=== PATIENT | female | born 1960 | race American Indian/Alaskan Native ===

== ENCOUNTER 2016-08-27 11:11 | Inpatient (IN) | payer MEDICAID, OTHER ==
--- NOTE | 2016-08-27 12:26 | C.PDOC ---
History Of Present Illness 56 y/o female is brought into the ED by son for evaluation. 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 He notes that she had been doing well but he is concerned that she may not be taking her medications because for the last day or two she has been withdrawn, no longer doing her daily activities. Son denies any known fevers or other complaints. Time Seen by Provider: 08/27/16 12:04 Chief Complaint (Nursing): Psychiatric Evaluation History Per: Family (son) History/Exam Limitations: other (pt has catatonic schizophrenia) Onset/Duration Of Symptoms: Days, Gradual, Persistent Current Symptoms Are (Timing): Still Present Suicide/Self Injury Attempted (Context): None Involuntary Hold By: None Recent travel outside of the [place]: No Past Medical History Reviewed: Historical Data, Nursing Documentation, Vital Signs Vital Signs: Last Vital Signs Temp 98.4 F 08/27/16 13:43 Pulse 90 08/27/16 13:43 Resp 20 08/27/16 13:43 BP 125/77 08/27/16 13:43 Pulse Ox 99 08/27/16 14:03 - Medical History PMH: Depression (Hx.), HTN, Schizophrenia (Hx.) Surgical History: No Surg Hx - [facility] Procedures GROUP PSYCHOTHERAPY (12/10/15) INDIVID PSYCHOTHERAP NEC (05/07/14) INDIVIDUAL PSYCHOTHERAPY, SUPPORTIVE (12/10/15) MEDICATION MANAGEMENT (12/10/15) OTHER GROUP THERAPY (05/07/14) PSYCHIAT DRUG THERAP NEC (05/07/14) Family History: States: Unknown Family Hx - Social History Hx Tobacco Use: No Hx Alcohol Use: No Hx Substance Use: No - Immunization History Hx Tetanus Toxoid Vaccination: No Hx Influenza Vaccination: No Hx Pneumococcal Vaccination: No Review Of Systems Except As Marked, All Systems Reviewed And Found Negative. Constitutional: Negative for: Fever Psych: Positive for: Other (pt seems withdrawn) Physical Exam - Physical Exam Appears: Non-toxic, No Acute Distress Skin: Normal Color, Warm, Dry Head: Atraumatic, Normacephalic Eye(s): bilateral: Normal Inspection, PERRL, EOMI Neck: Normal ROM, Supple Chest: Symmetrical Cardiovascular: Rhythm Regular Respiratory: Normal Breath Sounds, No Rales, No Rhonchi, No Wheezing Gastrointestinal/Abdominal: Normal Exam, Soft, No Tenderness Extremity: Normal ROM, No Pedal Edema Neurological/Psych: Oriented x3, Normal Speech, Normal Cognition ED Course And Treatment - Laboratory Results Result Diagrams: 08/27/16 12:46 08/27/16 12:46 ECG: Interpreted By Me ECG Rhythm: Sinus Rhythm ECG Interpretation: No Acute Changes Rate From EC (bpm) O2 Sat by Pulse Oximetry: 99 (ra) Pulse Ox Interpretation: Normal Progress Note: Pt medically stable for PES evaluation. However due to protocol : EKG, Blood Work, and Urinalysis were ordered and reviewed. Medical Decision Making Medical Decision Making: K noted low, review has shown pt need PO K in many of her prior admission, unclear if pt is on a diuretic for her HTN Recommend PO K, (20 bid) and repeat K in few days Disposition - Disposition Disposition: HOME/ ROUTINE Disposition Time: 14:33 Condition: FAIR - Clinical Impression Clinical Impression: Catatonia schizophrenia - Scribe Statement The provider has reviewed the documentation as recorded by the Scribe (Kassidy Smith) Provider Attestation: All medical record entries made by the Scribe were at my direction and personally dictated by me. I have reviewed the chart and agree that the record accurately reflects my personal performance of the history, physical exam, medical decision making, and the department course for this patient. I have also personally directed, reviewed, and agree with the discharge instructions and disposition. Decision To Admit - Pt Status Changed To: Hospital Disposition Of: Inpatient - Admit Certification Admit to Inpatient:: After my assessment, the patient will require hospitalization for at least two midnights. This is because of the severity of symptoms shown, intensity of services needed, and/or the medical risk in this patient being treated as an outpatient. - InPatient: Physician Admission Certification: I certify that this patient requires 2 or more midnights of care for the following reason:: Protocol - . Bed Request Type: Psychiatry Admitting Physician: Feliciano Barber Patient Diagnosis: Catatonia schizophrenia
[2016-08-27 12:54] LABS: BASO % 0.3 % (0.0-2.0); EOS % 0.4 % (0.0-4.0); HEMATOCRIT 43.3 % (34.0-47.0); LYMPH # 0.9 K/uL (1.0-4.3); MEAN CELL VOLUME 87.5 fL (81.0-99.0); MEAN CORPUSCULAR HEMOGLOBIN 29.4 pg (27.0-31.0); MEAN CORPUSCULAR HGB CONC 33.6 g/dL (33.0-37.0); MEAN PLATELET VOLUME 8.7 fL (7.2-11.7); MONO # 0.4 K/uL (0.0-0.8); MONO % 6.1 % (0.0-10.0); RED CELL DISTRIBUTION WIDTH 13.4 % (11.5-14.5); WHITE BLOOD COUNT 7.1 K/uL (4.8-10.8)
[2016-08-27 13:01] LABS: CHLORIDE 98 mmol/L (98-107)
[2016-08-27 13:02] LABS: POTASSIUM 3.1 mmol/L (3.6-5.2); SODIUM 144 mmol/L (132-148)
[2016-08-27 13:04] LABS: ALB/GLOB RATIO 1.1 (1.0-2.1); ALKALINE PHOSPHATASE 80 U/L (38-126); AST/SGOT 22 U/L (14-36); BILIRUBIN,TOTAL 0.6 mg/dL (0.2-1.3); BLOOD UREA NITROGEN 15 mg/dL (7-17); CARBON DIOXIDE 27 mmol/L (22-30); GFR AFRICAN-AMERICAN > 60; TOTAL PROTEIN 8.5 g/dL (6.3-8.3)
[2016-08-27 13:05] LABS: ALCOHOL SERUM < 10 mg/dl (0-10); ALT/SGPT 20 U/L (9-52); CALCIUM 9.2 mg/dl (8.6-10.4); GLUCOSE,RANDOM 115 mg/dL (65-105)
[2016-08-27 13:20] LABS: URINE BACTERIA OCC (<OCC); URINE BILIRUBIN NEGATIVE (NEGATIVE); URINE BLOOD NEGATIVE (NEGATIVE); URINE COLOR Amber (YELLOW); URINE GLUCOSE (UA) NORMAL (Normal); URINE KETONE 1+ mg/dL (NEGATIVE); URINE LEUKOCYTE ESTERASE TRACE Leu/uL (Negative); URINE PROTEIN 2+ mg/dL (NEGATIVE); URINE UROBILINOGEN NORMAL mg/dL (0.2-1.0)
[2016-08-27 13:30] LABS: RBC URINE 2 /hpf (0-3); WBC URINE 6 /hpf (0-5)
[2016-08-27] MEDS ORDERED: Potassium Chloride 20 mEq ER Tab PO STA (13:58)
[2016-08-27] MEDS ORDERED: Potassium Chloride 20 mEq ER Tab PO ONE (14:06)
[2016-08-27 14:54] VITALS: O2SAT 100
--- NOTE | 2016-08-28 13:19 | PCM.PSYCH ---
Initial Psychiatric Evaluation - Initial Psychiatric Evaluation Type of Admission: Voluntary Legal Status: Capacity Chief Complaint (in patient's own words): "I was depressed" History of Present Illness and Precipitating Events: The patient is seen, chart reviewed and case discussed. She is known to the commercial real estate underwriter from her 2016 admission. This is a 56-year-old -[place] female from [facility] from where she came about 10 or 12 years ago. 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 The patient was brought in by her family because she had stopped taking her medications a bit more than a month ago and started to become catatonic and depressed again. She just resumed her medications last week which are Lexapro and Risperdal and Ativan but was still very debilitated and catatonic. Patient denies any stressors currently in her life and claims that she thought she was well and this why she stopped the medications. Currently reports depressive symptoms and paranoia but denies homicidal or suicidal ideation. Denies AVH. Medical history: HTN Substance use history: Denies Family psych history: Denies Past psychiatric history Reports history of multiple inpatient psychiatric hospitalizations, last discharge last year from [facility] Current Medications: Active Medications Generic Name Dose Route Start Last Admin Trade Name Freq PRN Reason Stop Dose Admin Amlodipine Besylate 5 mg 08/28/16 10:00 08/28/16 10:07 Norvasc PO 5 mg DAILY ALISA Administration Escitalopram Oxalate 20 mg 08/28/16 10:00 08/28/16 10:07 Lexapro PO 20 mg DAILY ALISA Administration Famotidine 20 mg 08/27/16 18:00 08/28/16 10:07 Pepcid PO 20 mg BID ALISA Administration Hydroxyzine HCl 25 mg 08/27/16 17:43 Atarax PO Q4 PRN Anxiety Ibuprofen 600 mg 08/27/16 17:43 Motrin Tab PO Q6H PRN Pain, moderate (4-7) Lorazepam 1 mg 08/27/16 21:30 08/28/16 10:07 Ativan PO 1 mg TID ALISA Administration Risperidone 1 mg 08/27/16 22:00 Risperdal Tab PO HS ALISA Trazodone HCl 50 mg 08/27/16 22:00 Desyrel PO HS ALISA Past Psychiatric History - Past Psychiatric History Previous Treatment History: Inpatient Pertinent Medical Hx (Current Medical&Sleep Prob, Allergies): Allergies Allergy/AdvReac Type Severity Reaction Status Date / Time No Known Allergies Allergy Verified 12/09/15 18:59 risperiDONE [RisperDAL Tab] 1 mg PO HS #30 tab 12/15/15 traZODone [Desyrel] 50 mg PO HS PRN #30 tab 12/15/15 Escitalopram [Lexapro] 20 mg PO DAILY 08/27/16 Famotidine 20 mg PO BID 08/27/16 LORazepam [Ativan] 1 mg PO BID 08/27/16 Mv,Min #10/FA/D3/Alip Acid/Lut [Strovite One Caplet] 1 tab PO DAILY 08/27/16 Pravastatin Sodium [Pravachol] 20 mg PO DAILY 08/27/16 amLODIPine [Norvasc] 5 mg PO DAILY 08/27/16 Review of Systems - Neurological Neurological: UNREMARKABLE - Psychiatric Psychiatric: Abnormal Sleep Pattern, Anhedonia, Anxiety, Depression, Difficulty Concentrating, Paranoia. absent: Hallucinations, Homicidal Ideation, Suicidal Ideation Mental Status Examination - Personal Presentation Personal Presentation: Looks older than stated age - Affect Affect: Blunted - Motor Activity Motor Activity: Psychomotor Retardation - Reliability in Providing Information Reliability in Providing Information: Poor, due to alteration in thoughts - Speech Speech: Other (slowed) - Mood Mood: Depressed, Anxious - Formal Thought Process Formal Thought Process: Paranoia, Other (slow TP) - Obsessions/Compulsions Obsessions: No Compulsions: No - Cognitive Functions Orientation: Person, Place, Time Sensorium: Drowsy Attention/Concentration: Easily distracted Abstract Thinking: [place] Estimate of Intelligence: Below average Judgement: Intact, as evidence by: Insight regarding need for hospitalization Memory: Recent impaired, as evidence by: Inability to recall events of the day, Remote impaired as evidenced by: Inability to recall sig life events - Risk Risk: Diminished functioning - Strength & Assets Inventory Strength & Assets Inventory: Family support, Cooperative - Limitations Limitations: Living alone DSM 5 DX - DSM 5 DSM 5 Diagnosis: Schizoaffective d/o - depressed, w/ catatonia - Recommended/Plan of Treatment Treatment Recommendations and Plan of Treatment: Continue Lexapro 20 - which she had started already Continue risperdal but increase to 2 mg Ativan 1 mg TID - to be decreased slowly. For catatonia Attend groups and activities Indiv tx family meeting 33 min Projected ELOS: 7 days Prognosis: good w tx Discharge Plan and Discharge Criteria: no severe dep/psycotic sxs refer to [facility]
[2016-08-29 08:08] LABS: CHLORIDE 99 mmol/L (98-107); POTASSIUM 3.5 mmol/L (3.6-5.2); SODIUM 142 mmol/L (132-148)
[2016-08-29 08:11] LABS: BLOOD UREA NITROGEN 20 mg/dL (7-17); CALCIUM 8.6 mg/dl (8.6-10.4); CARBON DIOXIDE 27 mmol/L (22-30); GFR AFRICAN-AMERICAN > 60; GLUCOSE,RANDOM 104 mg/dL (65-105)
[2016-08-29 08:41] LABS: THYROID STIMULATING HORMONE 0.85 mIU/L (0.46-4.68)
--- NOTE | 2016-08-29 12:26 | PCM.PYCHPN ---
Psychiatric Progress Note - Psychiatric Progress Note Patient seen today, length of contact: 16 min Patient Chief Complaint: "I am better today" Problems Identified/Issues Discussed: The pt is seen, chart reviewed, case discussed with staff. The pt is compliant with medications and reports no side-effects. Symptoms are improving but needs more time to stabilize. After care discussed, support and psychoeducation given. Medication Change: Yes Medical Record Reviewed: Yes Mental Status Examination - Cognitive Function Orientation: Person, Place, Situation, Time Memory: Impaired Attention: Poor Concentration: Poor Association: WNL Fund of Knowledge: Poor - Mood Mood: Depressed, Anxious - Affect Affect: Constricted - Speech Speech: Appropriate - Formal Thought Process Formal Thought Process: Paranoia, Other (slow TP) - Suicidal Ideation Suicidal Ideation: No - Homicidal Ideation Homicidal Ideation: No Goal/Treatment Plan - Goal/Treatment Plan Need for Continued Stay: Severe depression anxiety, Discharge may exacerbated symptoms, Severe functional impairment Progress Toward Problem(s) and Goals/Treatment Plan: Continue Lexapro 20 - which she had started already Continue risperdal but increase to 2 mg Ativan 1 mg TID - to be decreased slowly. For catatonia Attend groups and activities [place] family meeting Estimated Date of D/C: 09/01/16
--- NOTE | 2016-08-30 11:27 | PCM.PYCHPN ---
Psychiatric Progress Note - Psychiatric Progress Note Patient seen today, length of contact: 16 min Patient Chief Complaint: Angelo Problems Identified/Issues Discussed: Patient seen and evaluated, chart reviewed and discussed with the nurse. Patient appears a bit more organized but remains catatonic and internally preoccupied. Patient still appears paranoid and delusional. She reports improvement in her mood but appeared depressed, and remained isolated and withdrawn. She is taking her medications and denied any side effects. Supportive therapy and psychoeducation were given. Medication Change: No Medical Record Reviewed: Yes Mental Status Examination - Cognitive Function Orientation: Person, Place, Situation, Time Memory: Impaired Attention: Poor Concentration: Poor Association: WNL Fund of Knowledge: Poor - Mood Mood: Depressed, Anxious - Affect Affect: Constricted - Speech Speech: Appropriate - Formal Thought Process Formal Thought Process: Paranoia, Other (slow ) - Suicidal Ideation Suicidal Ideation: No - Homicidal Ideation Homicidal Ideation: No Goal/Treatment Plan - Goal/Treatment Plan Need for Continued Stay: Severe depression anxiety, Discharge may exacerbated symptoms, Severe functional impairment Progress Toward Problem(s) and Goals/Treatment Plan: Schizoaffective d/o - depressed, w/ catatonia Continue Lexapro 20 - which she had started already Continue risperdal but increase to 2 mg Ativan 1 mg TID - to be decreased slowly. For catatonia Attend groups and activities [place] family meeting Estimated Date of D/C: 09/01/16 - Smoking Cessation Smoking Cessation Initiated: No
[2016-08-31] MEDS ORDERED: Pneumococcal 23-Valent Vaccine IM ONE (10:00)
[2016-08-31] MEDS ORDERED: Influenza Virus Vaccine 45 mcg/0.5 ml Syr IM ONE (10:00)
--- NOTE | 2016-08-31 12:15 | PCM.PYCHPN ---
Psychiatric Progress Note - Psychiatric Progress Note Patient seen today, length of contact: 15 min Patient Chief Complaint: "I don't know" Problems Identified/Issues Discussed: The pt is seen, chart reviewed, case discussed with staff. The pt is compliant with medications and reports no side-effects. Symptoms are improving but very slowly Her thought process is very slow and catatonia has improved but not disappeared yet. her daughter did not come for a meeting Will call again. After care discussed, she'll go to PSYCHIATRIC Support and psychoeducation given. Medication Change: No Medical Record Reviewed: Yes Mental Status Examination - Cognitive Function Orientation: Person, Place, Situation, Time Memory: Impaired Attention: Poor Concentration: Poor Association: WNL Fund of Knowledge: Poor - Mood Mood: Depressed, Anxious - Affect Affect: Constricted - Speech Speech: Appropriate - Formal Thought Process Formal Thought Process: Paranoia, Other (slow ) - Suicidal Ideation Suicidal Ideation: No - Homicidal Ideation Homicidal Ideation: No Goal/Treatment Plan - Goal/Treatment Plan Need for Continued Stay: Severe depression anxiety, Discharge may exacerbated symptoms, Severe functional impairment Progress Toward Problem(s) and Goals/Treatment Plan: Continue Lexapro 20 - which she had started already Continue risperdal but i 2 mg Ativan 1 mg TID - to be decreased slowly. Attend groups and activities [place] family meeting Estimated Date of D/C: 09/02/16
--- NOTE | 2016-08-31 18:25 | CARD ---
APPROVED REPORT EKG Measurement Heart [id number] MD [id number] <Conclusion> Normal sinus rhythm Possible Left atrial enlargement Marked ST abnormality, possible septal subendocardial injury Abnormal ECG
--- NOTE | 2016-09-01 11:08 | PCM.PYCHPN ---
Psychiatric Progress Note - Psychiatric Progress Note Patient seen today, length of contact: 15 min Patient Chief Complaint: "I am better" Problems Identified/Issues Discussed: The pt is seen, chart reviewed, case discussed with staff. Symptoms are improving slowly. She wants to leave tomorrow Much less catatonic Support and psychoeducation given. Medication Change: No Medical Record Reviewed: Yes Mental Status Examination - Cognitive Function Orientation: Person, Place, Situation, Time Memory: Impaired Attention: Poor Concentration: Poor Association: WNL Fund of Knowledge: Poor - Mood Mood: Depressed, Anxious - Affect Affect: Constricted - Speech Speech: Appropriate - Formal Thought Process Formal Thought Process: Paranoia, Other (slow ) - Suicidal Ideation Suicidal Ideation: No - Homicidal Ideation Homicidal Ideation: No Goal/Treatment Plan - Goal/Treatment Plan Need for Continued Stay: Severe depression anxiety, Discharge may exacerbated symptoms, Severe functional impairment Progress Toward Problem(s) and Goals/Treatment Plan: Continue Lexapro 20 - which she had started already Continue risperdal but i 2 mg Ativan 1 mg TID - to be decreased slowly. Attend groups and activities [place] family meeting - daughter did not come Estimated Date of D/C: 09/02/16
[2016-09-02 09:22] VITALS: BP 121/81; PULSE 90; RESP 18; TEMP 98.1
--- NOTE | 2016-09-02 09:49 | PCM.PYCHDC ---
Mental Status Examination - Mental Status Examination Orientation: Person, Place, Situation, Time Memory: Intact Mood: Neutral Affect: Constricted Speech: Soft Attention: WNL Concentration: WNL Association: WNL Fund of Knowledge: WNL Formal Thought Process: No Impairment Description of patient's judgement and insight: good, fair Psychotic Thoughts and Behaviors: denies any AVH Suicidal Ideation: No Current Homicidal Ideation?: No Discharge Summary - Discharge Note Reason for Hospitalization: This is a 56-year-old -[place] female from [facility] from where she came about 10 or 12 years ago. 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 The patient was brought in by her family because she had stopped taking her medications a bit more than a month ago and started to become catatonic and depressed again. She just resumed her medications last week which are Lexapro and Risperdal and Ativan but was still very debilitated and catatonic. Patient denies any stressors currently in her life and claims that she thought she was well and this why she stopped the medications. Currently reports depressive symptoms and paranoia but denies homicidal or suicidal ideation. Denies AVH. Consultations:: List each consultation separately and include: 1. Reason for request. 2. Findings. 3. Follow-up Summary of Hospital Course include:: 1. Description of specific treatment plan utilized for patients during their course of treatmen. 2. Summarize the time- course for resolution of acute symptoms and/or regressed behaviors. 3. Describe issues identified and worked on during hospitalization. 4. Describe medication utilized. 5. Describe medical problems identified and treated. 6. Reassessment of suicide risk Summary of Hospital Course: During the course of her stay, patient (pt) started progressively improving and she no longer remained irritable, anxious, paranoid and catatonic. Her mood and paranoia were improved and she started attending groups and meetings and started socializing. Patient denied any feelings of hopelessness, helplessness, and worthlessness, denied any problem with the sleep or appetite, denied suicidal ideation or homicidal ideation. Pt denied any auditory or visual hallucinations. Some changes were made in her current medications and patient was discharged on following medications. She tolerated these medications very well and denied any side effects. - Final Diagnosis (DSM 5) Condition upon Discharge: FAIR DSM 5: Schizoaffective d/o - depressed, w/ catatonia Disposition: HOME/ ROUTINE Follow-up Treatment Plan: Education: Pt was educated and counseled about the risks and benefits of taking and not taking medications. Pt was educated and counseled about the risks of drinking and abusing drugs. Pt was educated and counseled to go to the ER or call 911 if pt develop suicidal ideation or homicidal ideation, worsening of symptoms or severe side effects of the meds. Prescriptions/Medication Reconciliation: LORazepam [Ativan] 1 mg PO BID #60 tab Benztropine [Cogentin] 1 mg PO HS #30 tab traZODone [Desyrel] 50 mg PO HS PRN #30 tab PRN Reason: Insomnia Escitalopram [Lexapro] 20 mg PO DAILY #30 tab amLODIPine [Norvasc] 5 mg PO DAILY #30 tab risperiDONE [RisperDAL Tab] 2 mg PO HS #30 tab - Smoking Cessation Smoking Cessation Medication prescribed: No - Antipsychotic Medications Pt discharged on 2 or more routine antipsychotic medications: No
[2016-09-02] MEDS ORDERED: Pneumococcal 23-Valent Vaccine IM ONE (12:00)
[2016-09-02] MEDS ORDERED: Influenza Virus Vaccine 45 mcg/0.5 ml Syr IM ONE (12:45)
== END 2016-09-02 12:00 | disposition home or self-care (01) | DRG 885 ==
LOC: C.ER 11:11 → C.5E 14:35
PROVIDERS: ADMIT Psychiatry & Neurology Psychiatry; ATTEND Psychiatry & Neurology Psychiatry
DX: F20.2 Catatonic schizophrenia (principal); I10 Essential (primary) hypertension